=== PATIENT | female | born 1950 | race African-American/Black ===

== ENCOUNTER 2017-07-06 01:42 | Inpatient (IN) | payer MEDICARE, OTHER ==
[2017-07-06] VITALS (71 sets, daily range): BP systolic 114–179; BP diastolic 48–89
[~2017-07-06] VITALS: Ht 165.1 cm; Wt 63.5 kg
[2017-07-06 02:10] LABS: HEMATOCRIT. 29.3 % (36.0-48.0); HEMOGLOBIN. 9.1 g/dL (12.0-16.0); MEAN CORPUSCULAR HEMOGLOBIN 25.9 pg (28.0-32.0); MEAN CORPUSCULAR VOLUME 83.1 fL (81.0-99.0); MEAN PLATELET VOLUME 7.2 fl (7.4-10.4); PLATELET 389 x1000/uL (130-400); RED BLOOD CELL COUNT 3.52 mill/uL (4.2-5.4); RED CELL DISTRIBUTION WIDTH 15.6 % (11.6-14.6)
[2017-07-06] MEDS ORDERED: LABETALOL HCL 20MG/4ML CARPUJECT IV ONE (02:15)
[2017-07-06] MEDS ORDERED: DEXAMETHASONE 10 MG/ML VIAL IV ONE (02:15)
[2017-07-06] MEDS ORDERED: NICARDIPINE 100 MG in SODIUM CHLORIDE 0.9% 60 ML IV ONE (02:15)
[2017-07-06] MEDS ORDERED: PHENYTOIN SODIUM 500 MG in SODIUM CHLORIDE 0.9% 50 ML IV ONE (02:15)
[2017-07-06 02:18] LABS: INR 1.1; PROTHROMBIN TIME 11.8 sec (9.4-11.6)
[2017-07-06 02:24] LABS: CHLORIDE 103 mEq/L (98-107); ETHANOL BLOOD < 10 mg/dL
[2017-07-06] MEDS ORDERED: LABETALOL 5MG/ML SYR 20 MG/4 ML SYRINGE IV SCH (02:25)
[2017-07-06] MEDS ORDERED: SUCCINYLCHOLINE CHLORIDE 200MG/10ML VIAL IV ONE ×3 (02:45→04:00)
[2017-07-06] MEDS ORDERED: ETOMIDATE 2MG/ML 10ML VIAL IV ONE ×3 (02:45→04:00)
[2017-07-06] MEDS ORDERED: MANNITOL 20% 250 ML IV ONE (02:45)
[2017-07-06] MEDS ORDERED: MANNITOL 20% 250 ML IV SCH (02:51)
[2017-07-06 02:53] LABS: PLATELET ESTIMATE NORMAL
[2017-07-06] MEDS ORDERED: MIDAZOLAM HCL 2 MG/2 ML VIAL ONE (03:52)
[2017-07-06] MEDS ORDERED: PROPOFOL 10MG/ML 100ML 100 ML IV ONE (04:00)
[2017-07-06 05:12] LABS: BG BASE EXCESS -4.1 mmol/L (-2.0-2.0); BG CARBOXYHEMOGLOBIN 0.9 % (0.5-1.5); BG DEOXYHEMOGLOBIN 3.4 % (0.0-5.0); BG FRACTION INSPIRED OXYGEN 50; BG HCO3 ACT 19.8 mmol/L (22.0-26.0); BG METHEMOGLOBIN 0.2 % (0.0-1.5); BG OXYGEN SATURATION 96.6 % (92.0-98.5); BG OXYHEMOGLOBIN 95.5 % (94.0-97.0); BG PCO2 31.6 mmHg (35.0-45.0); BG PH 7.414 (7.350-7.450); BG PO2 88.9 mmHg (75.0-100.0); BG SAMPLE SITE RIGHT RADIAL; BG TIDAL VOLUME(mL) 500 mL; BG TOTAL HEMOGLOBIN 9.7 g/dL (12.0-18.0); BG VENT MODE VENT - A/C; BG VENT RATE 14 set
[2017-07-06] MEDS ORDERED: MIDAZOLAM HCL 5 MG/5 ML VIAL IV ONE (05:45)
[2017-07-06] MEDS ORDERED: VANCOMYCIN 1 G PREMIX 200 ML IV SCH (08:00)
[2017-07-06] MEDS ORDERED: MANNITOL 20% (20GM/100ML) BAG 500ML PREMIX IV SCH (08:00)
[2017-07-06] MEDS: MANNITOL 20% 500 ML IV SCH ×3 (08:15→16:15)
[2017-07-06] MEDS: FAMOTIDINE 20MG/2ML VIAL IV SCH ×2 (08:22→20:46)
[2017-07-06] MEDS: DEXT 5%/LACTATED RINGERS 1,000 ML IV SCH (08:23)
[2017-07-06] MEDS: PIPERACILLIN/TAZ 3.375G PREMIX 50 ML IV SCH ×3 (08:36→23:18)
[2017-07-06] MEDS ORDERED: DEXAMETHASONE 4MG/ML 1ML VIAL IV SCH (09:00)
[2017-07-06] MEDS: PHENYTOIN SODIUM 100MG/2ML VIAL IV SCH ×2 (11:34→18:17)
[2017-07-06] MEDS: NICARDIPINE 100 MG in SODIUM CHLORIDE 0.9% 60 ML IV PRN ×2 (12:04→19:00)
[2017-07-06] MEDS: DEXAMETHASONE 10 MG/ML VIAL IV SCH ×3 (13:34→23:18)
[2017-07-06] MEDS ORDERED: MANNITOL 20% (20GM/100ML) BAG 500ML PREMIX IV NR (16:38)
[2017-07-06 17:19] LABS: CHLORIDE 102 mEq/L (98-107)
[2017-07-06] MEDS ORDERED: IOHEXOL-350 100 ML BOTTLE ONE (19:07)
[2017-07-06] MEDS: VANCOMYCIN 750 MG PREMIX 150 ML IV SCH (20:45)
[2017-07-07] VITALS (94 sets, daily range): BP systolic 124–163; BP diastolic 39–83
[2017-07-07 00:32] LABS: *AMPHETAMINES SCREEN URINE NEGATIVE (NEGATIVE); *BARBITURATES SCREEN URINE NEGATIVE (NEGATIVE); *BENZODIAZEPINES SCREEN URINE PRESUMTIVE POSITIVE (NEGATIVE); *COCAINE SCREEN URINE NEGATIVE (NEGATIVE); CANNABINOID URINE SCREEN NEGATIVE (NEGATIVE); METHADONE URINE SCREEN NEGATIVE (NEGATIVE); OPIATES URINE SCREEN NEGATIVE (NEGATIVE); PHENCYCLIDINE URINE SCREEN NEGATIVE (NEGATIVE)
[2017-07-07] MEDS: PHENYTOIN SODIUM 100MG/2ML VIAL IV SCH ×3 (03:00→17:53)
[2017-07-07] MEDS: DEXT 5%/LACTATED RINGERS 1,000 ML IV SCH ×3 (05:21→22:45)
[2017-07-07] MEDS: NICARDIPINE 100 MG in SODIUM CHLORIDE 0.9% 60 ML IV PRN ×2 (05:22→15:55)
[2017-07-07] MEDS: DEXAMETHASONE 10 MG/ML VIAL IV SCH ×3 (05:26→17:54)
[2017-07-07 05:30] LABS: HEMATOCRIT. 29.4 % (36.0-48.0); HEMOGLOBIN. 8.9 g/dL (12.0-16.0); MEAN CORPUSCULAR HEMOGLOBIN 25.3 pg (28.0-32.0); MEAN CORPUSCULAR VOLUME 83.3 fL (81.0-99.0); MEAN PLATELET VOLUME 7.7 fl (7.4-10.4); PLATELET 554 x1000/uL (130-400); RED BLOOD CELL COUNT 3.53 mill/uL (4.2-5.4); RED CELL DISTRIBUTION WIDTH 15.9 % (11.6-14.6)
[2017-07-07 06:01] LABS: CHLORIDE 105 mEq/L (98-107)
[2017-07-07 06:23] LABS: CREATINE KINASE 80 IU/L (26-192); CREATINE KINASE MB FRACTION 4.6 ng/mL (0.5-3.6); TOTAL IRON BINDING CAPACITY 322 ug/dL (250-450)
[2017-07-07 06:51] LABS: FOLIC ACID (FOLATE) SERUM 10.8 ng/mL (>5.38)
[2017-07-07 07:46] LABS: BG BASE EXCESS -0.6 mmol/L (-2.0-2.0); BG CARBOXYHEMOGLOBIN 0.3 % (0.5-1.5); BG DEOXYHEMOGLOBIN 0.6 % (0.0-5.0); BG FRACTION INSPIRED OXYGEN 40; BG HCO3 ACT 22.2 mmol/L (22.0-26.0); BG METHEMOGLOBIN 0.4 % (0.0-1.5); BG OXYGEN SATURATION 99.4 % (92.0-98.5); BG OXYHEMOGLOBIN 98.7 % (94.0-97.0); BG PCO2 29.9 mmHg (35.0-45.0); BG PH 7.489 (7.350-7.450); BG PO2 188.9 mmHg (75.0-100.0); BG SAMPLE SITE RIGHT RADIAL; BG TIDAL VOLUME(mL) 500 mL; BG TOTAL HEMOGLOBIN 9.7 g/dL (12.0-18.0); BG VENT MODE VENT - A/C; BG VENT RATE 14 set
[2017-07-07] MEDS: IPRATROPIUM/ALBUTEROL 0.5-3(2.5)MG/3ML NEB INH PRN ×2 (08:15→20:57)
[2017-07-07] MEDS: PIPERACILLIN/TAZ 3.375G PREMIX 50 ML IV SCH ×2 (08:41→15:57)
[2017-07-07] MEDS: FAMOTIDINE 20MG/2ML VIAL IV SCH ×2 (08:45→22:27)
[2017-07-07] MEDS: VANCOMYCIN 750 MG PREMIX 150 ML IV SCH ×2 (09:10→22:27)
[2017-07-07 15:42] LABS: PLATELET ESTIMATE INCREASED
[2017-07-08] VITALS (96 sets, daily range): BP systolic 112–157; BP diastolic 48–87
[2017-07-08] MEDS: IPRATROPIUM/ALBUTEROL 0.5-3(2.5)MG/3ML NEB INH PRN ×3 (00:30→08:10)
[2017-07-08] MEDS: DEXAMETHASONE 10 MG/ML VIAL IV SCH ×4 (01:29→17:16)
[2017-07-08] MEDS: PHENYTOIN SODIUM 100MG/2ML VIAL IV SCH ×3 (01:29→17:16)
[2017-07-08] MEDS: PIPERACILLIN/TAZ 3.375G PREMIX 50 ML IV SCH ×3 (01:46→15:49)
[2017-07-08 05:49] LABS: BASOPHILS % 0.1 % (0.0-2.0); HEMATOCRIT. 26.3 % (36.0-48.0); LYMPHOCYTES % 1.7 % (20.0-50.0); MEAN CORPUSCULAR HEMOGLOBIN 25.7 pg (28.0-32.0); MEAN CORPUSCULAR VOLUME 84.2 fL (81.0-99.0); MEAN PLATELET VOLUME 7.7 fl (7.4-10.4); MONOCYTES % 0.9 % (2.0-8.0); NEUTROPHILS % 97.3 % (40.0-76.0); PLATELET 464 x1000/uL (130-400); RED BLOOD CELL COUNT 3.12 mill/uL (4.2-5.4); RED CELL DISTRIBUTION WIDTH 15.6 % (11.6-14.6)
[2017-07-08 07:07] LABS: TROPONIN I 3.3 ng/mL (0.00-0.04)
[2017-07-08] MEDS: NICARDIPINE 100 MG in SODIUM CHLORIDE 0.9% 60 ML IV PRN ×2 (07:33→15:04)
[2017-07-08 08:16] LABS: BG BASE EXCESS -3.1 mmol/L (-2.0-2.0); BG CARBOXYHEMOGLOBIN 0.3 % (0.5-1.5); BG FRACTION INSPIRED OXYGEN 35; BG HCO3 ACT 20.1 mmol/L (22.0-26.0); BG METHEMOGLOBIN 0.3 % (0.0-1.5); BG OXYHEMOGLOBIN 98.4 % (94.0-97.0); BG PCO2 29.4 mmHg (35.0-45.0); BG PH 7.452 (7.350-7.450); BG PO2 130.4 mmHg (75.0-100.0); BG SAMPLE SITE RIGHT RADIAL; BG TIDAL VOLUME(mL) 500 mL; BG TOTAL HEMOGLOBIN 9.5 g/dL (12.0-18.0); BG VENT MODE VENT - A/C; BG VENT RATE 12 set
[2017-07-08] MEDS: FAMOTIDINE 20MG/2ML VIAL IV SCH (08:54)
[2017-07-08] MEDS: DEXT 5%/LACTATED RINGERS 1,000 ML IV SCH (10:44)
[2017-07-08] MEDS ORDERED: VANCOMYCIN 750 MG PREMIX 150 ML IV NR (22:00)
[2017-07-09] VITALS (97 sets, daily range): BP systolic 115–168; BP diastolic 51–105
[2017-07-09] MEDS: PIPERACILLIN/TAZ 3.375G PREMIX 50 ML IV SCH ×4 (00:25→23:37)
[2017-07-09] MEDS: DEXAMETHASONE 10 MG/ML VIAL IV SCH ×5 (00:25→23:36)
[2017-07-09] MEDS: NICARDIPINE 100 MG in SODIUM CHLORIDE 0.9% 60 ML IV PRN ×2 (01:11→15:32)
[2017-07-09] MEDS: DEXT 5%/LACTATED RINGERS 1,000 ML IV SCH ×2 (02:10→06:40)
[2017-07-09 02:19] LABS: CLARITY URINE CLEAR (CLEAR); COLOR URINE YELLOW (YELLOW); KETONES URINE NEGATIVE (NEGATIVE); LEUKOCYTE ESTERASE URINE NEGATIVE (NEGATIVE); NITRITE URINE NEGATIVE (NEGATIVE); OCCULT BLOOD URINE 3+ (NEGATIVE); PROTEIN URINE 1+ (NEGATIVE); SPECIFIC GRAVITY URINE 1.025 (1.005-1.030); UROBILINOGEN URINE 0.2 E.U./dL (0.2-1.0)
[2017-07-09] MEDS: PHENYTOIN SODIUM 100MG/2ML VIAL IV SCH ×3 (02:46→17:38)
[2017-07-09 05:54] LABS: HEMATOCRIT. 25.6 % (36.0-48.0); HEMOGLOBIN. 7.7 g/dL (12.0-16.0); MEAN CORPUSCULAR HEMOGLOBIN 25.4 pg (28.0-32.0); MEAN CORPUSCULAR VOLUME 84.1 fL (81.0-99.0); MEAN PLATELET VOLUME 7.5 fl (7.4-10.4); PLATELET 466 x1000/uL (130-400); RED BLOOD CELL COUNT 3.04 mill/uL (4.2-5.4); RED CELL DISTRIBUTION WIDTH 15.6 % (11.6-14.6)
[2017-07-09 07:22] LABS: PLATELET ESTIMATE INCREASED
[2017-07-09] MEDS: IPRATROPIUM/ALBUTEROL 0.5-3(2.5)MG/3ML NEB INH PRN ×4 (07:22→23:57)
[2017-07-09] MEDS: FAMOTIDINE 20MG/2ML VIAL IV SCH (08:34)
[2017-07-09] MEDS: LISINOPRIL 20MG TABLET PEG SCH ×2 (08:34→21:17)
[2017-07-09] MEDS: VANCOMYCIN 750 MG PREMIX 150 ML IV SCH (21:17)
[2017-07-09] MEDS: HYDRALAZINE HCL 25MG TABLET PO SCH (21:17)
[2017-07-10] VITALS (95 sets, daily range): BP systolic 119–173; BP diastolic 48–76
[2017-07-10] MEDS: PHENYTOIN SODIUM 100MG/2ML VIAL IV SCH ×2 (01:35→09:25)
[2017-07-10] MEDS: IPRATROPIUM/ALBUTEROL 0.5-3(2.5)MG/3ML NEB INH PRN ×4 (04:20→16:10)
[2017-07-10] MEDS: NICARDIPINE 100 MG in SODIUM CHLORIDE 0.9% 60 ML IV PRN ×2 (04:48→19:06)
[2017-07-10 05:40] LABS: HEMATOCRIT. 28.5 % (36.0-48.0); HEMOGLOBIN. 8.6 g/dL (12.0-16.0); MEAN CORPUSCULAR HEMOGLOBIN 25.2 pg (28.0-32.0); MEAN CORPUSCULAR VOLUME 84.1 fL (81.0-99.0); MEAN PLATELET VOLUME 7.6 fl (7.4-10.4); PLATELET 537 x1000/uL (130-400); RED BLOOD CELL COUNT 3.39 mill/uL (4.2-5.4); RED CELL DISTRIBUTION WIDTH 15.9 % (11.6-14.6)
[2017-07-10 05:58] LABS: CHLORIDE 112 mEq/L (98-107)
[2017-07-10] MEDS: HYDRALAZINE HCL 25MG TABLET PO SCH ×3 (06:09→21:47)
[2017-07-10] MEDS: DEXAMETHASONE 10 MG/ML VIAL IV SCH ×2 (06:09→11:29)
[2017-07-10] MEDS: PIPERACILLIN/TAZ 3.375G PREMIX 50 ML IV SCH ×3 (07:47→23:29)
[2017-07-10] MEDS: FAMOTIDINE 20MG/2ML VIAL IV SCH (08:38)
[2017-07-10] MEDS: LISINOPRIL 20MG TABLET PEG SCH ×2 (08:39→21:47)
[2017-07-10 10:58] LABS: PLATELET ESTIMATE INCREASED
[2017-07-10] MEDS: AMLODIPINE 5MG TABLET PO SCH ×2 (13:34→21:48)
[2017-07-10] MEDS: PHENYTOIN 100 MG/4 ML UDC NG SCH ×2 (13:37→21:47)
[2017-07-10] MEDS: DEXAMETHASONE 4MG/ML 1ML VIAL IV SCH ×2 (17:40→23:29)
[2017-07-10] MEDS: HYDRALAZINE 20MG/ML VIAL IV PRN (18:08)
[2017-07-10] MEDS: VANCOMYCIN 750 MG PREMIX 150 ML IV SCH (21:46)
[2017-07-11] VITALS (91 sets, daily range): BP systolic 92–160; BP diastolic 47–80
[2017-07-11] MEDS: IPRATROPIUM/ALBUTEROL 0.5-3(2.5)MG/3ML NEB INH PRN ×5 (00:04→20:07)
[2017-07-11] MEDS: HYDRALAZINE HCL 25MG TABLET PO SCH ×3 (05:07→21:07)
[2017-07-11] MEDS: PHENYTOIN 100 MG/4 ML UDC NG SCH ×3 (05:08→21:06)
[2017-07-11] MEDS: DEXAMETHASONE 4MG/ML 1ML VIAL IV SCH ×3 (05:08→17:31)
[2017-07-11 06:05] LABS: HEMATOCRIT. 30.2 % (36.0-48.0); MEAN CORPUSCULAR VOLUME 83.7 fL (81.0-99.0); MEAN PLATELET VOLUME 7.6 fl (7.4-10.4); PLATELET 580 x1000/uL (130-400); RED CELL DISTRIBUTION WIDTH 15.6 % (11.6-14.6)
[2017-07-11 06:31] LABS: CHLORIDE 109 mEq/L (98-107)
[2017-07-11 06:40] LABS: HDL CHOLESTEROL 41 mg/dL (40-59); LDL CHOLESTEROL 116 mg/dL (5-100)
[2017-07-11] MEDS: PIPERACILLIN/TAZ 3.375G PREMIX 50 ML IV SCH ×2 (07:37→16:28)
[2017-07-11] MEDS: AMLODIPINE 5MG TABLET PO SCH ×2 (08:33→20:19)
[2017-07-11] MEDS: FAMOTIDINE 20MG/2ML VIAL IV SCH (08:33)
[2017-07-11] MEDS: LISINOPRIL 20MG TABLET PEG SCH ×2 (08:34→20:19)
[2017-07-11] MEDS ORDERED: FLUCONAZOLE 200MG TABLET PO SCH (09:00)
[2017-07-11 11:13] LABS: PLATELET ESTIMATE INCREASED
[2017-07-11] MEDS: VANCOMYCIN 1 G PREMIX 200 ML IV SCH (11:56)
[2017-07-11 15:25] LABS: BG BASE EXCESS 0.5 mmol/L (-2.0-2.0); BG CARBOXYHEMOGLOBIN 0.3 % (0.5-1.5); BG DEOXYHEMOGLOBIN 0.7 % (0.0-5.0); BG FRACTION INSPIRED OXYGEN 35; BG HCO3 ACT 23.4 mmol/L (22.0-26.0); BG METHEMOGLOBIN 0.3 % (0.0-1.5); BG OXYGEN SATURATION 99.3 % (92.0-98.5); BG OXYHEMOGLOBIN 98.7 % (94.0-97.0); BG PCO2 31.3 mmHg (35.0-45.0); BG PH 7.491 (7.350-7.450); BG PO2 174.3 mmHg (75.0-100.0); BG SAMPLE SITE LEFT RADIAL; BG TIDAL VOLUME(mL) 500 mL; BG TOTAL HEMOGLOBIN 10.2 g/dL (12.0-18.0); BG VENT MODE VENT - A/C; BG VENT RATE 12 set
[2017-07-11] MEDS ORDERED: MICAFUNGIN 100 MG in SODIUM CHLORIDE 0.9% 100 ML IV SCH (17:00)
[2017-07-11] MEDS: NICARDIPINE 100 MG in SODIUM CHLORIDE 0.9% 60 ML IV PRN (17:00)
[2017-07-12] VITALS (63 sets, daily range): BP systolic 97–194; BP diastolic 52–88
[2017-07-12] MEDS: IPRATROPIUM/ALBUTEROL 0.5-3(2.5)MG/3ML NEB INH PRN ×7 (00:19→23:54)
[2017-07-12] MEDS: DEXAMETHASONE 4MG/ML 1ML VIAL IV SCH ×4 (00:32→18:17)
[2017-07-12] MEDS: PIPERACILLIN/TAZ 3.375G PREMIX 50 ML IV SCH ×2 (00:32→09:41)
[2017-07-12] MEDS: PHENYTOIN 100 MG/4 ML UDC NG SCH ×3 (05:16→21:32)
[2017-07-12] MEDS: HYDRALAZINE HCL 25MG TABLET PO SCH ×3 (05:16→21:32)
[2017-07-12 05:37] LABS: HEMATOCRIT. 28.6 % (36.0-48.0); HEMOGLOBIN. 8.6 g/dL (12.0-16.0); MEAN CORPUSCULAR HEMOGLOBIN 25.2 pg (28.0-32.0); MEAN CORPUSCULAR VOLUME 83.7 fL (81.0-99.0); MEAN PLATELET VOLUME 7.8 fl (7.4-10.4); PLATELET 537 x1000/uL (130-400); RED BLOOD CELL COUNT 3.41 mill/uL (4.2-5.4); RED CELL DISTRIBUTION WIDTH 15.5 % (11.6-14.6)
[2017-07-12 05:41] LABS: INR 1.1; PROTHROMBIN TIME 11.1 sec (9.4-11.6)
[2017-07-12 06:49] LABS: CHLORIDE 108 mEq/L (98-107)
[2017-07-12 08:52] LABS: PLATELET ESTIMATE INCREASED
[2017-07-12] MEDS: AMLODIPINE 5MG TABLET PO SCH ×2 (09:41→21:31)
[2017-07-12] MEDS: FAMOTIDINE 20MG/2ML VIAL IV SCH (09:41)
[2017-07-12] MEDS: LISINOPRIL 20MG TABLET PEG SCH ×2 (09:42→21:32)
[2017-07-12] MEDS: VANCOMYCIN 1 G PREMIX 200 ML IV SCH (12:27)
[2017-07-12] MEDS: HYDRALAZINE 20MG/ML VIAL IV PRN (19:42)
[2017-07-13] VITALS (62 sets, daily range): BP systolic 90–182; BP diastolic 46–94
[2017-07-13] MEDS: DEXAMETHASONE 4MG/ML 1ML VIAL IV SCH ×4 (00:54→17:39)
[2017-07-13] MEDS: IPRATROPIUM/ALBUTEROL 0.5-3(2.5)MG/3ML NEB INH PRN ×4 (03:49→16:06)
[2017-07-13] MEDS: HYDRALAZINE HCL 25MG TABLET PO SCH ×3 (05:23→21:01)
[2017-07-13] MEDS: PHENYTOIN 100 MG/4 ML UDC NG SCH ×3 (05:23→21:01)
[2017-07-13] MEDS: HYDRALAZINE 20MG/ML VIAL IV PRN ×2 (07:15→13:44)
[2017-07-13] MEDS: AMLODIPINE 5MG TABLET PO SCH ×2 (08:46→21:00)
[2017-07-13] MEDS: LISINOPRIL 20MG TABLET PEG SCH ×2 (08:46→21:01)
[2017-07-13] MEDS: FAMOTIDINE 20MG/2ML VIAL IV SCH (08:46)
[2017-07-13] MEDS: FLUCONAZOLE 100 MG/50ML BAG 100 MG in BAG 0 EACH IV SCH (22:01)
[2017-07-14] VITALS (40 sets, daily range): BP systolic 90–183; BP diastolic 49–92
[2017-07-14] MEDS: IPRATROPIUM/ALBUTEROL 0.5-3(2.5)MG/3ML NEB INH PRN ×2 (00:08→07:54)
[2017-07-14] MEDS: DEXAMETHASONE 4MG/ML 1ML VIAL IV SCH ×5 (00:47→23:59)
[2017-07-14] MEDS: PHENYTOIN 100 MG/4 ML UDC NG SCH ×3 (05:50→21:09)
[2017-07-14 05:51] LABS: HEMATOCRIT. 32.3 % (36.0-48.0); HEMOGLOBIN. 9.8 g/dL (12.0-16.0); MEAN CORPUSCULAR HEMOGLOBIN 25.2 pg (28.0-32.0); MEAN CORPUSCULAR VOLUME 83.4 fL (81.0-99.0); PLATELET 636 x1000/uL (130-400); RED BLOOD CELL COUNT 3.88 mill/uL (4.2-5.4); RED CELL DISTRIBUTION WIDTH 15.9 % (11.6-14.6)
[2017-07-14] MEDS: HYDRALAZINE HCL 25MG TABLET PO SCH ×3 (05:51→21:09)
[2017-07-14 06:23] LABS: CHLORIDE 107 mEq/L (98-107)
[2017-07-14 07:57] LABS: BG BASE EXCESS -0.8 mmol/L (-2.0-2.0); BG CARBOXYHEMOGLOBIN 0.3 % (0.5-1.5); BG DEOXYHEMOGLOBIN 0.8 % (0.0-5.0); BG FRACTION INSPIRED OXYGEN 35; BG HCO3 ACT 22.3 mmol/L (22.0-26.0); BG METHEMOGLOBIN 0.3 % (0.0-1.5); BG OXYGEN SATURATION 99.2 % (92.0-98.5); BG OXYHEMOGLOBIN 98.6 % (94.0-97.0); BG PCO2 31.5 mmHg (35.0-45.0); BG PH 7.467 (7.350-7.450); BG PO2 159.5 mmHg (75.0-100.0); BG SAMPLE SITE RIGHT BRACHIAL; BG TIDAL VOLUME(mL) 500 mL; BG TOTAL HEMOGLOBIN 11.3 g/dL (12.0-18.0); BG VENT MODE VENT - A/C; BG VENT RATE 12 set
[2017-07-14] MEDS: FAMOTIDINE 20MG/2ML VIAL IV SCH (08:42)
[2017-07-14] MEDS: AMLODIPINE 5MG TABLET PO SCH ×2 (08:42→21:09)
[2017-07-14] MEDS: LISINOPRIL 20MG TABLET PEG SCH ×2 (08:42→21:09)
[2017-07-14 11:47] LABS: PLATELET ESTIMATE INCREASED
[2017-07-14] MEDS: FLUCONAZOLE 100 MG/50ML BAG 100 MG in BAG 0 EACH IV SCH (21:09)
[2017-07-15] VITALS (40 sets, daily range): BP systolic 97–168; BP diastolic 44–86
[2017-07-15] MEDS: DEXAMETHASONE 4MG/ML 1ML VIAL IV SCH ×3 (05:34→17:31)
[2017-07-15] MEDS: HYDRALAZINE HCL 25MG TABLET PO SCH ×3 (05:34→22:29)
[2017-07-15] MEDS: PHENYTOIN 100 MG/4 ML UDC NG SCH ×3 (05:34→22:28)
[2017-07-15] MEDS: FAMOTIDINE 20MG/2ML VIAL IV SCH (08:10)
[2017-07-15] MEDS: LISINOPRIL 20MG TABLET PEG SCH ×2 (08:10→22:29)
[2017-07-15] MEDS: AMLODIPINE 5MG TABLET PO SCH ×2 (08:10→22:30)
[2017-07-15 09:19] LABS: HEMATOCRIT. 31.6 % (36.0-48.0); HEMOGLOBIN. 9.7 g/dL (12.0-16.0); MEAN CORPUSCULAR HEMOGLOBIN 25.6 pg (28.0-32.0); MEAN CORPUSCULAR VOLUME 83.1 fL (81.0-99.0); MEAN PLATELET VOLUME 7.9 fl (7.4-10.4); PLATELET 586 x1000/uL (130-400); RED BLOOD CELL COUNT 3.81 mill/uL (4.2-5.4); RED CELL DISTRIBUTION WIDTH 15.9 % (11.6-14.6)
[2017-07-15 09:28] LABS: CHLORIDE 107 mEq/L (98-107)
[2017-07-15] MEDS: HYDRALAZINE 20MG/ML VIAL IV PRN (12:16)
[2017-07-15 12:30] LABS: PLATELET ESTIMATE INCREASED
[2017-07-15] MEDS: FLUCONAZOLE 100 MG/50ML BAG 100 MG in BAG 0 EACH IV SCH (23:21)
[2017-07-16] VITALS (41 sets, daily range): BP systolic 80–166; BP diastolic 44–84
[2017-07-16] MEDS: DEXAMETHASONE 4MG/ML 1ML VIAL IV SCH ×4 (04:18→17:47)
[2017-07-16 05:51] LABS: HEMATOCRIT. 29.7 % (36.0-48.0); HEMOGLOBIN. 9.2 g/dL (12.0-16.0); MEAN CORPUSCULAR HEMOGLOBIN 25.9 pg (28.0-32.0); MEAN CORPUSCULAR VOLUME 83.1 fL (81.0-99.0); MEAN PLATELET VOLUME 8.1 fl (7.4-10.4); PLATELET 512 x1000/uL (130-400); RED BLOOD CELL COUNT 3.57 mill/uL (4.2-5.4); RED CELL DISTRIBUTION WIDTH 15.7 % (11.6-14.6)
[2017-07-16 06:20] LABS: CHLORIDE 108 mEq/L (98-107)
[2017-07-16] MEDS: PHENYTOIN 100 MG/4 ML UDC NG SCH ×3 (06:45→21:11)
[2017-07-16] MEDS: HYDRALAZINE HCL 25MG TABLET PO SCH ×2 (06:46→15:32)
[2017-07-16 07:33] LABS: NUCLEATED RED BLOOD CELLS 1 /100 WBC; PLATELET ESTIMATE INCREASED
[2017-07-16] MEDS: FAMOTIDINE 20MG/2ML VIAL IV SCH (09:54)
[2017-07-16] MEDS: LISINOPRIL 20MG TABLET PEG SCH ×2 (09:55→21:10)
[2017-07-16] MEDS: AMLODIPINE 5MG TABLET PO SCH (10:03)
[2017-07-16] MEDS: IPRATROPIUM/ALBUTEROL 0.5-3(2.5)MG/3ML NEB INH PRN (20:16)
[2017-07-16] MEDS: FLUCONAZOLE 100 MG/50ML BAG 100 MG in BAG 0 EACH IV SCH (21:10)
[2017-07-16] MEDS: AMLODIPINE 10MG TABLET PO SCH (21:11)
[2017-07-16] MEDS: HYDRALAZINE HCL 50MG TABLET PO SCH (23:09)
[2017-07-17] VITALS (54 sets, daily range): BP systolic 25–150; BP diastolic 15–72
[2017-07-17] MEDS: IPRATROPIUM/ALBUTEROL 0.5-3(2.5)MG/3ML NEB INH PRN (00:33)
[2017-07-17] MEDS: DEXAMETHASONE 4MG/ML 1ML VIAL IV SCH ×3 (02:23→17:36)
[2017-07-17 05:42] LABS: HEMATOCRIT. 30.1 % (36.0-48.0); MEAN CORPUSCULAR VOLUME 83.4 fL (81.0-99.0); MEAN PLATELET VOLUME 8.1 fl (7.4-10.4); PLATELET 498 x1000/uL (130-400); RED BLOOD CELL COUNT 3.61 mill/uL (4.2-5.4); RED CELL DISTRIBUTION WIDTH 15.9 % (11.6-14.6)
[2017-07-17 06:16] LABS: CHLORIDE 109 mEq/L (98-107)
[2017-07-17] MEDS ORDERED: SODIUM POLYSTYRENE SULFONATE 15 G/60 ML BOT PO SCH (06:45)
[2017-07-17] MEDS: HYDRALAZINE HCL 50MG TABLET PO SCH ×3 (06:55→22:00)
[2017-07-17] MEDS: PHENYTOIN 100 MG/4 ML UDC NG SCH ×3 (06:55→21:04)
[2017-07-17 07:32] LABS: BG BASE EXCESS -3.3 mmol/L (-2.0-2.0); BG CARBOXYHEMOGLOBIN 0.3 % (0.5-1.5); BG DEOXYHEMOGLOBIN 1.1 % (0.0-5.0); BG FRACTION INSPIRED OXYGEN 35; BG HCO3 ACT 19.6 mmol/L (22.0-26.0); BG METHEMOGLOBIN 0.2 % (0.0-1.5); BG OXYGEN SATURATION 98.9 % (92.0-98.5); BG OXYHEMOGLOBIN 98.4 % (94.0-97.0); BG PCO2 28.4 mmHg (35.0-45.0); BG PH 7.457 (7.350-7.450); BG PO2 193.1 mmHg (75.0-100.0); BG SAMPLE SITE RIGHT RADIAL; BG TIDAL VOLUME(mL) 500 mL; BG TOTAL HEMOGLOBIN 10.5 g/dL (12.0-18.0); BG VENT MODE VENT - A/C; BG VENT RATE 12 set
[2017-07-17] MEDS: FAMOTIDINE 20MG/2ML VIAL IV SCH (09:07)
[2017-07-17] MEDS: AMLODIPINE 10MG TABLET PO SCH ×2 (09:07→21:00)
[2017-07-17] MEDS: LISINOPRIL 20MG TABLET PEG SCH ×2 (09:07→21:00)
[2017-07-17 10:15] LABS: PLATELET ESTIMATE INCREASED
[2017-07-17] MEDS: FLUCONAZOLE 100 MG/50ML BAG 100 MG in BAG 0 EACH IV SCH (21:05)
[2017-07-18] VITALS (45 sets, daily range): BP systolic 75–145; BP diastolic 37–77
[2017-07-18] MEDS: DEXAMETHASONE 4MG/ML 1ML VIAL IV SCH ×3 (02:45→17:27)
[2017-07-18 04:59] LABS: HEMATOCRIT. 28.5 % (36.0-48.0); HEMOGLOBIN. 8.7 g/dL (12.0-16.0); MEAN CORPUSCULAR HEMOGLOBIN 25.7 pg (28.0-32.0); MEAN CORPUSCULAR VOLUME 84.4 fL (81.0-99.0); MEAN PLATELET VOLUME 7.8 fl (7.4-10.4); PLATELET 429 x1000/uL (130-400); RED BLOOD CELL COUNT 3.38 mill/uL (4.2-5.4); RED CELL DISTRIBUTION WIDTH 15.9 % (11.6-14.6)
[2017-07-18 05:11] LABS: CHLORIDE 112 mEq/L (98-107)
[2017-07-18] MEDS: HYDRALAZINE HCL 50MG TABLET PO SCH ×3 (06:00→21:59)
[2017-07-18] MEDS: PHENYTOIN 100 MG/4 ML UDC NG SCH ×3 (06:08→21:57)
[2017-07-18 07:04] LABS: PLATELET ESTIMATE SLIGHTLY INCREASED
[2017-07-18] MEDS: IPRATROPIUM/ALBUTEROL 0.5-3(2.5)MG/3ML NEB INH PRN ×2 (07:23→15:10)
[2017-07-18] MEDS: FAMOTIDINE 20MG/2ML VIAL IV SCH (08:55)
[2017-07-18] MEDS: AMLODIPINE 10MG TABLET PO SCH ×2 (09:00→21:34)
[2017-07-18] MEDS: FLUCONAZOLE 100 MG/50ML BAG 100 MG in BAG 0 EACH IV SCH (22:46)
[2017-07-19] VITALS (49 sets, daily range): BP systolic 83–157; BP diastolic 43–68
[2017-07-19] MEDS: DEXAMETHASONE 4MG/ML 1ML VIAL IV SCH ×3 (02:42→17:29)
[2017-07-19 05:42] LABS: HEMATOCRIT. 29.8 % (36.0-48.0); HEMOGLOBIN. 8.7 g/dL (12.0-16.0); MEAN CORPUSCULAR HEMOGLOBIN 24.4 pg (28.0-32.0); MEAN CORPUSCULAR VOLUME 83.7 fL (81.0-99.0); MEAN PLATELET VOLUME 7.8 fl (7.4-10.4); PLATELET 449 x1000/uL (130-400); RED BLOOD CELL COUNT 3.56 mill/uL (4.2-5.4); RED CELL DISTRIBUTION WIDTH 15.7 % (11.6-14.6)
[2017-07-19 05:46] LABS: CHLORIDE 116 mEq/L (98-107)
[2017-07-19] MEDS: PHENYTOIN 100 MG/4 ML UDC NG SCH ×3 (06:32→21:46)
[2017-07-19] MEDS: HYDRALAZINE HCL 50MG TABLET PO SCH ×3 (06:36→21:46)
[2017-07-19] MEDS: IPRATROPIUM/ALBUTEROL 0.5-3(2.5)MG/3ML NEB INH PRN ×3 (08:03→15:53)
[2017-07-19 08:06] LABS: BG BASE EXCESS -2.2 mmol/L (-2.0-2.0); BG CARBOXYHEMOGLOBIN 0.3 % (0.5-1.5); BG DEOXYHEMOGLOBIN 1.2 % (0.0-5.0); BG FRACTION INSPIRED OXYGEN 30; BG HCO3 ACT 21.7 mmol/L (22.0-26.0); BG METHEMOGLOBIN 0.2 % (0.0-1.5); BG OXYGEN SATURATION 98.8 % (92.0-98.5); BG OXYHEMOGLOBIN 98.3 % (94.0-97.0); BG PCO2 33.7 mmHg (35.0-45.0); BG PH 7.426 (7.350-7.450); BG PO2 142.5 mmHg (75.0-100.0); BG SAMPLE SITE RIGHT RADIAL; BG TIDAL VOLUME(mL) 500 mL; BG VENT MODE VENT - A/C; BG VENT RATE 12 set
[2017-07-19] MEDS: AMLODIPINE 10MG TABLET PO SCH ×2 (09:00→20:51)
[2017-07-19] MEDS: FAMOTIDINE 20MG/2ML VIAL IV SCH (09:32)
[2017-07-19] MEDS: DEXT 5%/0.45% NACL 1000ML 1,000 ML IV SCH ×2 (10:53→23:21)
[2017-07-19 11:31] LABS: PLATELET ESTIMATE INCREASED
[2017-07-19] MEDS: FLUCONAZOLE 100 MG/50ML BAG 100 MG in BAG 0 EACH IV SCH (21:46)
[2017-07-20] VITALS (49 sets, daily range): BP systolic 87–142; BP diastolic 39–68
[2017-07-20] MEDS: DEXAMETHASONE 4MG/ML 1ML VIAL IV SCH ×3 (01:56→18:26)
[2017-07-20 05:23] LABS: HEMATOCRIT. 26.7 % (36.0-48.0); MEAN CORPUSCULAR HEMOGLOBIN 25.3 pg (28.0-32.0); MEAN CORPUSCULAR VOLUME 84.5 fL (81.0-99.0); MEAN PLATELET VOLUME 8.3 fl (7.4-10.4); PLATELET 383 x1000/uL (130-400); RED BLOOD CELL COUNT 3.16 mill/uL (4.2-5.4); RED CELL DISTRIBUTION WIDTH 16.1 % (11.6-14.6)
[2017-07-20] MEDS: HYDRALAZINE HCL 50MG TABLET PO SCH ×3 (06:00→22:00)
[2017-07-20] MEDS: PHENYTOIN 100 MG/4 ML UDC NG SCH ×3 (06:11→22:14)
[2017-07-20 07:28] LABS: PLATELET ESTIMATE NORMAL
[2017-07-20] MEDS: IPRATROPIUM/ALBUTEROL 0.5-3(2.5)MG/3ML NEB INH PRN ×3 (07:42→15:48)
[2017-07-20] MEDS: AMLODIPINE 10MG TABLET PO SCH ×2 (09:00→20:53)
[2017-07-20] MEDS: FAMOTIDINE 20MG/2ML VIAL IV SCH (09:21)
[2017-07-20] MEDS: DEXT 5%/0.45% NACL 1000ML 1,000 ML IV SCH (11:52)
[2017-07-20] MEDS: FLUCONAZOLE 100 MG/50ML BAG 100 MG in BAG 0 EACH IV SCH (22:14)
[2017-07-21] VITALS (52 sets, daily range): BP systolic 91–192; BP diastolic 40–95
[2017-07-21] MEDS: DEXAMETHASONE 4MG/ML 1ML VIAL IV SCH ×3 (01:48→17:24)
[2017-07-21 05:36] LABS: HEMATOCRIT. 27.5 % (36.0-48.0); HEMOGLOBIN. 8.2 g/dL (12.0-16.0); MEAN CORPUSCULAR HEMOGLOBIN 25.2 pg (28.0-32.0); MEAN CORPUSCULAR VOLUME 84.4 fL (81.0-99.0); MEAN PLATELET VOLUME 8.3 fl (7.4-10.4); PLATELET 384 x1000/uL (130-400); RED BLOOD CELL COUNT 3.26 mill/uL (4.2-5.4); RED CELL DISTRIBUTION WIDTH 15.8 % (11.6-14.6)
[2017-07-21 05:54] LABS: CHLORIDE 109 mEq/L (98-107)
[2017-07-21] MEDS: HYDRALAZINE HCL 50MG TABLET PO SCH ×3 (06:00→21:43)
[2017-07-21 06:02] LABS: PHOSPHORUS 3.1 mg/dL (2.5-4.9)
[2017-07-21] MEDS: DEXT 5%/0.45% NACL 1000ML 1,000 ML IV SCH (06:15)
[2017-07-21] MEDS: PHENYTOIN 100 MG/4 ML UDC NG SCH ×3 (06:15→21:42)
[2017-07-21] MEDS: IPRATROPIUM/ALBUTEROL 0.5-3(2.5)MG/3ML NEB INH PRN (07:32)
[2017-07-21] MEDS ORDERED: SODIUM POLYSTYRENE SULFONATE 15 G/60 ML BOT PO SCH (08:00)
[2017-07-21 08:37] LABS: BG BASE EXCESS -4.6 mmol/L (-2.0-2.0); BG CARBOXYHEMOGLOBIN 0.1 % (0.5-1.5); BG DEOXYHEMOGLOBIN 0.8 % (0.0-5.0); BG FRACTION INSPIRED OXYGEN 30; BG HCO3 ACT 19.1 mmol/L (22.0-26.0); BG METHEMOGLOBIN 0.5 % (0.0-1.5); BG OXYGEN SATURATION 99.2 % (92.0-98.5); BG OXYHEMOGLOBIN 98.6 % (94.0-97.0); BG PCO2 30.1 mmHg (35.0-45.0); BG SAMPLE SITE LEFT RADIAL; BG TIDAL VOLUME(mL) 500 mL; BG TOTAL HEMOGLOBIN 9.1 g/dL (12.0-18.0); BG VENT MODE VENT - A/C; BG VENT RATE 12 set
[2017-07-21] MEDS: AMLODIPINE 10MG TABLET PO SCH ×3 (09:00→21:42)
[2017-07-21] MEDS: FAMOTIDINE 20MG/2ML VIAL IV SCH (09:11)
[2017-07-21 10:15] LABS: PLATELET ESTIMATE NORMAL
[2017-07-21] MEDS: HYDRALAZINE 20MG/ML VIAL IV PRN (14:56)
[2017-07-22] VITALS (47 sets, daily range): BP systolic 92–166; BP diastolic 44–76
[2017-07-22] MEDS: DEXAMETHASONE 4MG/ML 1ML VIAL IV SCH ×3 (02:45→17:54)
[2017-07-22] MEDS: PHENYTOIN 100 MG/4 ML UDC NG SCH ×3 (05:45→21:22)
[2017-07-22] MEDS: HYDRALAZINE HCL 50MG TABLET PO SCH ×3 (05:45→21:23)
[2017-07-22 06:00] LABS: CHLORIDE 107 mEq/L (98-107)
[2017-07-22 06:02] LABS: PARTIAL THROMBOPLASTIN TIME 25.2 sec (23.4-31.0)
[2017-07-22 06:07] LABS: HEMATOCRIT. 30.8 % (36.0-48.0); HEMOGLOBIN. 9.5 g/dL (12.0-16.0); MEAN CORPUSCULAR HEMOGLOBIN 25.7 pg (28.0-32.0); MEAN CORPUSCULAR VOLUME 83.9 fL (81.0-99.0); MEAN PLATELET VOLUME 8.4 fl (7.4-10.4); PLATELET 419 x1000/uL (130-400); RED BLOOD CELL COUNT 3.67 mill/uL (4.2-5.4); RED CELL DISTRIBUTION WIDTH 16.1 % (11.6-14.6)
[2017-07-22 06:08] LABS: PHOSPHORUS 3.6 mg/dL (2.5-4.9)
[2017-07-22 07:06] LABS: PLATELET ESTIMATE NORMAL
[2017-07-22] MEDS: IPRATROPIUM/ALBUTEROL 0.5-3(2.5)MG/3ML NEB INH PRN ×4 (08:11→23:59)
[2017-07-22 09:19] LABS: BG BASE EXCESS -3.6 mmol/L (-2.0-2.0); BG CARBOXYHEMOGLOBIN 0.3 % (0.5-1.5); BG FRACTION INSPIRED OXYGEN 30; BG HCO3 ACT 19.9 mmol/L (22.0-26.0); BG METHEMOGLOBIN 0.2 % (0.0-1.5); BG OXYHEMOGLOBIN 98.5 % (94.0-97.0); BG PCO2 30.5 mmHg (35.0-45.0); BG PH 7.432 (7.350-7.450); BG PO2 162.6 mmHg (75.0-100.0); BG SAMPLE SITE RIGHT RADIAL; BG TIDAL VOLUME(mL) 500 mL; BG TOTAL HEMOGLOBIN 9.8 g/dL (12.0-18.0); BG VENT MODE VENT - A/C; BG VENT RATE 12 set
[2017-07-22] MEDS: FAMOTIDINE 20MG/2ML VIAL IV SCH (09:38)
[2017-07-22] MEDS: AMLODIPINE 10MG TABLET PO SCH ×2 (09:38→21:23)
[2017-07-23] VITALS (20 sets, daily range): BP systolic 106–161; BP diastolic 52–77
[2017-07-23] MEDS: DEXAMETHASONE 4MG/ML 1ML VIAL IV SCH ×3 (02:06→17:24)
[2017-07-23 05:42] LABS: HEMATOCRIT. 29.7 % (36.0-48.0); HEMOGLOBIN. 9.2 g/dL (12.0-16.0); MEAN CORPUSCULAR HEMOGLOBIN 25.8 pg (28.0-32.0); MEAN CORPUSCULAR VOLUME 83.9 fL (81.0-99.0); MEAN PLATELET VOLUME 8.4 fl (7.4-10.4); PARTIAL THROMBOPLASTIN TIME 24.5 sec (23.4-31.0); PLATELET 394 x1000/uL (130-400); RED BLOOD CELL COUNT 3.55 mill/uL (4.2-5.4); RED CELL DISTRIBUTION WIDTH 16.5 % (11.6-14.6)
[2017-07-23 05:52] LABS: CHLORIDE 107 mEq/L (98-107)
[2017-07-23 05:59] LABS: PHOSPHORUS 3.4 mg/dL (2.5-4.9)
[2017-07-23] MEDS ORDERED: CEFAZOLIN 1000MG PREMIX 50 ML IV NR (06:00)
[2017-07-23] MEDS: PHENYTOIN 100 MG/4 ML UDC NG SCH ×3 (06:01→21:33)
[2017-07-23] MEDS: HYDRALAZINE HCL 50MG TABLET PO SCH ×3 (06:02→21:39)
[2017-07-23 07:32] LABS: PLATELET ESTIMATE NORMAL
[2017-07-23] MEDS: IPRATROPIUM/ALBUTEROL 0.5-3(2.5)MG/3ML NEB INH PRN ×3 (08:16→23:50)
[2017-07-23] MEDS: FAMOTIDINE 20MG/2ML VIAL IV SCH (08:17)
[2017-07-23] MEDS: AMLODIPINE 10MG TABLET PO SCH ×2 (08:18→21:39)
[2017-07-24] VITALS (16 sets, daily range): BP systolic 81–153; BP diastolic 44–69
[2017-07-24] MEDS: DEXAMETHASONE 4MG/ML 1ML VIAL IV SCH ×2 (01:34→09:28)
[2017-07-24] MEDS: PHENYTOIN 100 MG/4 ML UDC NG SCH (05:18)
[2017-07-24] MEDS: HYDRALAZINE HCL 50MG TABLET PO SCH (05:19)
[2017-07-24 06:52] LABS: HEMATOCRIT. 30.6 % (36.0-48.0); HEMOGLOBIN. 9.3 g/dL (12.0-16.0); MEAN CORPUSCULAR HEMOGLOBIN 25.4 pg (28.0-32.0); MEAN CORPUSCULAR VOLUME 83.9 fL (81.0-99.0); MEAN PLATELET VOLUME 8.7 fl (7.4-10.4); PLATELET 385 x1000/uL (130-400); RED BLOOD CELL COUNT 3.64 mill/uL (4.2-5.4); RED CELL DISTRIBUTION WIDTH 16.5 % (11.6-14.6)
[2017-07-24 07:18] LABS: CHLORIDE 109 mEq/L (98-107)
[2017-07-24 07:24] LABS: PHOSPHORUS 3.2 mg/dL (2.5-4.9)
[2017-07-24 09:07] LABS: PLATELET ESTIMATE NORMAL
[2017-07-24] MEDS: IPRATROPIUM/ALBUTEROL 0.5-3(2.5)MG/3ML NEB INH PRN (09:10)
[2017-07-24] MEDS: FAMOTIDINE 20MG/2ML VIAL IV SCH (09:27)
[2017-07-24] MEDS: AMLODIPINE 10MG TABLET PO SCH (09:28)
[2017-07-24] MEDS ORDERED: MORPHINE SULFATE 100 MG in DEXT 5% WATER 90 ML IV SCH (13:00)
[2017-07-24] MEDS: MORPHINE SULFATE 250 MG in DEXT 5% WATER 240 ML IV PRN (21:50)
[2017-07-25] VITALS (14 sets, daily range): BP systolic 66–120; BP diastolic 32–54
[2017-07-26] VITALS: BP 83/44
[2017-07-26 02:00] VITALS: BP 72/38
[2017-07-26] MEDS: MORPHINE SULFATE 250 MG in DEXT 5% WATER 240 ML IV PRN (02:44)
[2017-07-26 04:00] VITALS: BP 71/29
[2017-07-26 04:30] VITALS: BP 71/29
== END 2017-07-26 06:47 | disposition expired | DRG 870 ==
LOC: ER 02:05 → EDBEDREQTM 02:21 → EDBEDREQSVC 02:21 → EDBEDREQ 02:21 → MICUSO 03:35 → EDBEDREQ 03:45 → ENRESERV 03:54 → 5EST 07-23 11:43
PROVIDERS: ADMIT Ophthalmology; ATTEND Ophthalmology
PROC: 5A1955Z Respiratory Ventilation, Greater than 96 Consecutive Hours (ICD-10-PCS; principal; 2017-07-06)
PROC: 0BH17EZ Insertion of Endotracheal Airway into Trachea, Via Natural or Artificial Opening (ICD-10-PCS; 2017-07-06)
DX: A41.9 Sepsis, unspecified organism (principal); I21.4 Non-ST elevation (NSTEMI) myocardial infarction; I61.4 Nontraumatic intracerebral hemorrhage in cerebellum; J96.00 Acute respiratory failure, unspecified whether with hypoxia or hypercapnia; N17.0 Acute kidney failure with tubular necrosis; G93.40 Encephalopathy, unspecified; R13.10 Dysphagia, unspecified; E46 Unspecified protein-calorie malnutrition; Z99.11 Dependence on respirator [ventilator] status; E87.0 Hyperosmolality and hypernatremia; G81.94 Hemiplegia, unspecified affecting left nondominant side; I42.9 Cardiomyopathy, unspecified; N39.0 Urinary tract infection, site not specified; I10 Essential (primary) hypertension; F17.200 Nicotine dependence, unspecified, uncomplicated; D50.9 Iron deficiency anemia, unspecified; E78.5 Hyperlipidemia, unspecified; G89.29 Other chronic pain; I27.20 Pulmonary hypertension, unspecified; Z51.5 Encounter for palliative care; Z66 Do not resuscitate; Z88.6 Allergy status to analgesic agent; Z68.23 Body mass index [BMI] 23.0-23.9, adult
CPT/HCPCS: 31500; 36415; 36600; 51702; 70450; 70496; 71045; 80048; 80053; 80061; 80202; 80305; 81001; 82270; 82375; 82550; 82553; 82607; 82746; 82805; 82962; 83540; 83550; 83735; 84100; 84443; 84478; 84484; 85025; 85610; 85730; 87040; 87070; 87086; 93005; 93306; 94002; 94003; 94640; 96374; 96375; 99291; A6261; G0482; J0330; J0360; J1100; J1165; J1450; J2248; J2250; J2274; J2543; J2704; J3370; J3490; J7040; J7050; J7060; J7121; J7620; Q9967; A4315